=== PATIENT | female | born 1990 | race Caucasian/White ===

== ENCOUNTER 2018-08-27 21:30 | Emergency (ER) | payer OTHER ==
[~2018-08-27] VITALS: Ht 157.5 cm; Wt 63.5 kg
[2018-08-27] MEDS ORDERED: ZOLOFT25 MG PO (21:45)
[2018-08-27 22:20] LABS: ABSOLUTE BASOPHILS 0.1 thou/uL (0.0-0.2); ABSOLUTE EOSINOPHILS 0.3 thou/uL (0.0-0.7); ABSOLUTE LYMPHOCYTES 1.5 thou/uL (0.8-5.3); ABSOLUTE MONOCYTES 0.5 thou/uL (0.0-1.2); ABSOLUTE NEUTROPHILS 3.9 thou/uL (1.6-8.1); BASOPHILS 1.2 %; EOSINOPHILS 4.1 %; HEMATOCRIT 39.6 % (37.0-47.0); HEMOGLOBIN 13.3 gm/dL (12.0-15.0); MCH 29.9 pg (26.0-34.0); MCHC 33.5 g/dL (28.0-37.0); MCV 89.2 fL (80.0-100.0); MONOCYTES 7.6 %; MPV 6.7 fl. (7.2-11.1); NUCLEATED RBCS 0 /100WBC; PLATELET COUNT* 317 thou/uL (150-400); POLYS 63.1 %; RBC 4.44 mil/uL (4.20-5.00); RDW-CV 13.2 % (10.5-14.5); WBC 6.2 thou/uL (4.0-11.0)
[2018-08-27 22:26] LABS: URINE BILIRUBIN NEGATIVE (Negative); URINE BLOOD 1+ (Negative); URINE CLARITY CLEAR; URINE COLOR STRAW; URINE GLUCOSE-RANDOM NEGATIVE (Negative); URINE KETONES NEGATIVE (Negative); URINE LEUKOCYTES-REFLEX NEGATIVE (Negative); URINE NITRITE-REFLEX NEGATIVE (Negative); URINE PROTEIN NEGATIVE (Negative); URINE UROBILINOGEN 0.2 E.U./dl (0.2-1.0)
[2018-08-27 22:28] LABS: CALCIUM 8.8 mg/dL (8.5-10.1); CREATININE 0.7 mg/dL (0.6-1.3); POTASSIUM 3.5 mmol/L (3.5-5.1)
[2018-08-27 22:32] LABS: APTT 32.7 Seconds (25.0-31.3); INR 0.9; PROTIME 9.6 Seconds (9.20-11.50)
[2018-08-27 22:33] LABS: ALBUMIN 3.7 g/dL (3.4-5.0); TOTAL BILIRUBIN 0.2 mg/dL (<0.1-1.0); TOTAL PROTEIN 8.5 g/dL (6.4-8.2)
[2018-08-27 23:09] LABS: CASTS None Seen /LPF (None Seen); SQUAMOUS 0-3 Few /LPF (0-3)
[2018-08-27 23:10] LABS: URINE WBC-REFLEX 0-5 Rare /HPF (0-5)
[2018-08-27 23:11] LABS: BACTERIA-REFLEX None Seen /HPF (None Seen); URINE RBC 0-2 Rare /HPF (0-2)
[2018-08-27 23:12] LABS: RENAL EPITHELIAL CELLS 0-3 Few /LPF (None Seen)
[2018-08-27 23:23] LABS: CRYSTALS None Seen /LPF (None Seen)
[2018-08-27 23:32] VITALS: BP 111/75
--- NOTE | 2018-08-29 14:10 | EKG ---
[place] [address] ELECTROCARDIOGRAM REPORT Name: MOISES DENTON Room: [facility]#: [id number] Admission: 08/27/18 Attend Phys: Discharge: 08/27/18 Date of : 89 Report #: [id number] THIS REPORT FOR: //name// [facility] ED Test Date: 2018-08-27 Test Time: 22:30:33 Pat Name: MOISES DENTON Department: Room: Gender: F [employer] D[employer] Consultant: ESTEBAN : 1990 Requested By: Arline Naylor Order Number: [id number] MD: Heladio Conley Measurements Intervals [place] Rate: 94 P: 51 NE: 115 QRS: 56 QRSD: 78 T: 19 QT: 347 QTc: 434 Interpretive Statements Sinus rhythm Borderline short NE interval No previous ECG available for comparison Electronically Signed On 08-29-2018 14:09:57 [employer] by Heladio Conley [email or web address] <ELECTRONICALLY SIGNED> By: Heladio Conley MD, [facility] 08/29/18 1409 2230 2230 Heladio Conley MD, FACC /EPI
== END 2018-08-27 23:32 | disposition home or self-care (01) ==
LOC: M.ERS 21:30
PROVIDERS: Physician Assistant
DX: N93.8 Other specified abnormal uterine and vaginal bleeding (principal); F17.200 Nicotine dependence, unspecified, uncomplicated; Z88.2 Allergy status to sulfonamides